=== PATIENT | female | born 1965 | race Caucasian/White ===

== ENCOUNTER 2021-05-15 09:01 | Outpatient (CLI) | payer OTHER ==
[2021-05-23] MEDS ORDERED: CINN500C2 PO (13:37)
[2021-05-23] MEDS ORDERED: ASCO500C10 PO (13:37)
[2021-05-23] MEDS ORDERED: MECO10005 PO (13:37)
[2021-05-23] MEDS ORDERED: HYDR-2214 PO (13:37)
[2021-05-23] MEDS ORDERED: ASPI-963 PO (13:37)
[2021-05-23] MEDS ORDERED: POTA99TA24 PO (13:37)
== END 2021-05-15 23:59 | disposition home or self-care (01) ==
LOC: ROC 09:01
PROVIDERS: ATTEND Radiology Radiation Oncology
DX: C34.2 Malignant neoplasm of middle lobe, bronchus or lung (principal); C79.51 Secondary malignant neoplasm of bone; J44.9 Chronic obstructive pulmonary disease, unspecified; E11.9 Type 2 diabetes mellitus without complications; Z79.01 Long term (current) use of anticoagulants; Z79.899 Other long term (current) drug therapy; Z87.891 Personal history of nicotine dependence
CPT/HCPCS: 99214; G0463

== ENCOUNTER 2021-05-17 09:36 | Outpatient (CLI) | payer OTHER ==
[2021-05-23] MEDS ORDERED: POTA99TA24 PO (13:37)
[2021-05-23] MEDS ORDERED: ASCO500C10 PO (13:37)
[2021-05-23] MEDS ORDERED: MECO10005 PO (13:37)
[2021-05-23] MEDS ORDERED: CINN500C2 PO (13:37)
[2021-05-23] MEDS ORDERED: ASPI-963 PO (13:37)
[2021-05-23] MEDS ORDERED: HYDR-2214 PO (13:37)
== END 2021-05-17 23:59 | disposition home or self-care (01) ==
LOC: CFH 09:36 → EDSTATUS 10:00 → CFH 23:59 → EDSTATUS 06-05 11:00
PROVIDERS: ATTEND Internal Medicine
DX: Z02.9 Encounter for administrative examinations, unspecified (principal)

== ENCOUNTER 2021-05-18 08:20 | Outpatient (CLI) | payer OTHER ==
[2021-05-18] MEDS ORDERED: GADOTERATE 10 MMOL/20ML SYR ONE (12:00)
[2021-05-23] MEDS ORDERED: HYDR-2214 PO (13:37)
[2021-05-23] MEDS ORDERED: CINN500C2 PO (13:37)
[2021-05-23] MEDS ORDERED: ASCO500C10 PO (13:37)
[2021-05-23] MEDS ORDERED: MECO10005 PO (13:37)
[2021-05-23] MEDS ORDERED: POTA99TA24 PO (13:37)
[2021-05-23] MEDS ORDERED: ASPI-963 PO (13:37)
== END 2021-05-18 23:59 | disposition home or self-care (01) ==
LOC: PETCFH 08:20 → RAD 23:59
PROVIDERS: ATTEND Internal Medicine
DX: C79.51 Secondary malignant neoplasm of bone (principal); C34.2 Malignant neoplasm of middle lobe, bronchus or lung; I67.82 Cerebral ischemia; R59.1 Generalized enlarged lymph nodes; G93.89 Other specified disorders of brain
CPT/HCPCS: 70553; 78815; A9552; A9575

== ENCOUNTER 2021-05-29 08:21 | Outpatient (CLI) | payer OTHER ==
[~2021-05-29 08:21] MED LIST: ASCO500C10 PO; ASPI-963 PO; CINN500C2 PO; HYDR-2214 PO; MECO10005 PO; POTA99TA24 PO
== END 2021-05-29 23:59 | disposition home or self-care (01) ==
LOC: ROC 08:21
PROVIDERS: ATTEND Radiology Radiation Oncology
DX: Z08 Encounter for follow-up examination after completed treatment for malignant neoplasm (principal); Z85.118 Personal history of other malignant neoplasm of bronchus and lung; Z85.830 Personal history of malignant neoplasm of bone; E11.9 Type 2 diabetes mellitus without complications; Z79.01 Long term (current) use of anticoagulants; Z79.899 Other long term (current) drug therapy; Z87.891 Personal history of nicotine dependence
CPT/HCPCS: 99213; G0463

== ENCOUNTER 2021-06-14 06:13 | Day surgery (SDC) | payer OTHER ==
[~2021-06-14] VITALS: Ht 167.6 cm; Wt 92.2 kg
[2021-06-14 06:59] VITALS: BP 104/66
[2021-06-14 07:42] LABS: INTERNATIONAL NORMALIZED RATIO 0.96 (0.93-1.1); PROTHROMBIN TIME 10.3 Seconds (9.6-11.5)
[2021-06-14] MEDS ORDERED: MIDAZOLAM 1 MG/ML, 5ML ONE (08:01)
[2021-06-14] MEDS ORDERED: FLUMAZENIL 0.1 MG/1 ML, 5ML ONE (08:01)
[2021-06-14] MEDS ORDERED: FENTANYL PF 100 MCG/2ML ONE (08:01)
[2021-06-14] MEDS ORDERED: NALOXONE 1 MG/ML, 2ML ONE (08:02)
== END 2021-06-14 11:05 | disposition home or self-care (01) ==
LOC: RAD 06:13 → OUT 11:05
PROVIDERS: ATTEND Internal Medicine
DX: C34.11 Malignant neoplasm of upper lobe, right bronchus or lung (principal); C79.51 Secondary malignant neoplasm of bone; C78.7 Secondary malignant neoplasm of liver and intrahepatic bile duct; C79.72 Secondary malignant neoplasm of left adrenal gland; C79.71 Secondary malignant neoplasm of right adrenal gland; C78.1 Secondary malignant neoplasm of mediastinum; F17.210 Nicotine dependence, cigarettes, uncomplicated; Z79.01 Long term (current) use of anticoagulants; Z79.899 Other long term (current) drug therapy; Z80.1 Family history of malignant neoplasm of trachea, bronchus and lung
CPT/HCPCS: 36415; 47000; 77012; 85610; 88307; 88341; 88342; 99156; 99157; J2250; J3010; J2310

== ENCOUNTER 2021-07-05 09:08 | Outpatient (CLI) | payer OTHER | END 2021-07-05 23:59 | disposition home or self-care (01) | LOC: ROC 09:08 | PROVIDERS: ATTEND Radiology Radiation Oncology | DX: Z02.9 Encounter for administrative examinations, unspecified (principal) ==